=== PATIENT | male | born 1985 | race African-American/Black ===

== ENCOUNTER 2020-06-02 05:47 | Emergency (ER) | payer OTHER ==
[~2020-06-02] VITALS: Ht 188 cm; Wt 82.0 kg
[2020-06-02] MEDS ORDERED: LEVETIRACETAM 1000MG PREMIX 100 ML IV ONE (06:15)
[2020-06-02] MEDS ORDERED: SODIUM CHLORIDE 0.9% 1,000 ML IV ONE (06:15)
[2020-06-02 06:27] LABS: CHLORIDE 106 mEq/L (98-107)
[2020-06-02 06:28] LABS: PROTHROMBIN TIME 10.3 sec (9.6-11.0)
[2020-06-02 06:31] LABS: ETHANOL BLOOD < 10 mg/dL
[2020-06-02 06:33] LABS: *AMPHETAMINES SCREEN URINE NEGATIVE (NEGATIVE); *BARBITURATES SCREEN URINE NEGATIVE (NEGATIVE); *BENZODIAZEPINES SCREEN URINE NEGATIVE (NEGATIVE); *COCAINE SCREEN URINE NEGATIVE (NEGATIVE); CANNABINOID URINE SCREEN PRESUMTIVE POSITIVE (NEGATIVE); METHADONE URINE SCREEN NEGATIVE (NEGATIVE); OPIATES URINE SCREEN NEGATIVE (NEGATIVE); PHENCYCLIDINE URINE SCREEN NEGATIVE (NEGATIVE)
[2020-06-02 06:34] LABS: BASOPHILS % 0.9 % (0.0-2.0); EOSINOPHILS % 3.1 % (0.0-5.0); HEMATOCRIT. 42.9 % (42.0-52.0); HEMOGLOBIN. 14.3 g/dL (14.0-18.0); LYMPHOCYTES % 29.5 % (20.0-50.0); MEAN CORPUSCULAR HEMOGLOBIN 31.5 pg (28.0-32.0); MEAN CORPUSCULAR VOLUME 94.6 fL (80.0-94.0); MEAN PLATELET VOLUME 9.3 fl (7.4-10.4); MONOCYTES % 7.4 % (2.0-8.0); NEUTROPHILS % 59.1 % (40.0-76.0); PLATELET 271 x1000/uL (130-400); RED BLOOD CELL COUNT 4.53 mill/uL (4.7-6.1); RED CELL DISTRIBUTION WIDTH 13.6 % (11.6-14.6)
[2020-06-02 07:25] VITALS: BP 114/84
== END 2020-06-02 08:29 | disposition home or self-care (01) ==
LOC: ER 05:47
DX: G40.909 Epilepsy, unspecified, not intractable, without status epilepticus (principal); R03.0 Elevated blood-pressure reading, without diagnosis of hypertension; Z86.73 Personal history of transient ischemic attack (TIA), and cerebral infarction without residual deficits
CPT/HCPCS: 36415; 80053; 80305; 80320; 85025; 85610; 93005; 96374; 99284; J1953; J7030; G0480

== ENCOUNTER 2024-01-07 13:23 | Emergency (ER) | payer SELFPAY ==
[~2024-01-07] VITALS: Ht 180.3 cm; Wt 68.0 kg
[2024-01-07 13:29] VITALS: O2SAT 100
[2024-01-07] MEDS: LEVETIRACETAM 500MG PREMIX 100 ML IV ONE (14:19)
[2024-01-07 14:26] LABS: BASOPHILS % 0.8 % (0.0-2.0); DIFFERENTIAL COMMENT 0; EOSINOPHILS % 0.8 % (0.0-5.0); HEMATOCRIT. 39.9 % (42.0-52.0); HEMOGLOBIN. 13.2 g/dL (14.0-18.0); LYMPHOCYTES % 10.4 % (20.0-50.0); MEAN CORPUSCULAR HEMOGLOBIN 31.1 pg (28.0-32.0); MEAN CORPUSCULAR HGB CONC 33.2 g/dL (31.0-37.0); MEAN CORPUSCULAR VOLUME 93.8 fL (80.0-94.0); MEAN PLATELET VOLUME 8.3 fl (7.4-10.4); MONOCYTES % 5.7 % (2.0-8.0); NEUTROPHILS % 82.3 % (40.0-76.0); PLATELET 284 x1000/uL (130-400); RED BLOOD CELL COUNT 4.26 mill/uL (4.7-6.1); RED CELL DISTRIBUTION WIDTH 13.3 % (11.6-14.6); WHITE BLOOD COUNT 7.9 x1000/uL (4.5-11.0)
[2024-01-07 14:31] LABS: CARBON DIOXIDE 23 mEq/L (21-32); CHLORIDE 109 mEq/L (98-107); POTASSIUM 4.3 mEq/L (3.5-5.1); SODIUM 138 mEq/L (136-145)
[2024-01-07 14:32] LABS: CALCIUM 9.2 mg/dL (8.7-10.4)
[2024-01-07 14:37] LABS: GLUCOSE 101 mg/dL (70-105); UREA NITROGEN BLOOD 11 mg/dL (9-23)
[2024-01-07] MEDS ORDERED: KEPP500 MT (15:24)
[2024-01-07 15:44] VITALS: BP 112/68; PULSE 78; RESP 14; TEMP 98.6
== END 2024-01-07 15:45 | disposition home or self-care (01) ==
LOC: ER 13:23
DX: R56.9 Unspecified convulsions (principal); F41.9 Anxiety disorder, unspecified
CPT/HCPCS: 99284; 96365; 80048; 85025; 36415; J1953